=== PATIENT | male | born 1975 | race Caucasian/White ===

== ENCOUNTER 2020-05-15 05:40 | Emergency (ER) | payer OTHER ==
[~2020-05-15] VITALS: Ht 180.3 cm; Wt 90.7 kg
[2020-05-15 06:28] LABS: URINE BILIRUBIN NEGATIVE (Negative); URINE BLOOD 3+ (Negative); URINE CLARITY CLEAR; URINE COLOR YELLOW; URINE GLUCOSE-RANDOM NEGATIVE (Negative); URINE KETONES NEGATIVE (Negative); URINE LEUKOCYTES-REFLEX NEGATIVE (Negative); URINE NITRITE-REFLEX NEGATIVE (Negative); URINE PROTEIN NEGATIVE (Negative); URINE SPECIFIC GRAVITY >= 1.030 (1.005-1.030); URINE UROBILINOGEN 0.2 E.U./dl (0.2-1.0)
[2020-05-15] MEDS ORDERED: ZOFRAN ODT4 MG PO (06:52)
[2020-05-15] MEDS ORDERED: PERCOCET 7.5-31 EAC1 PO (06:52)
[2020-05-15] MEDS ORDERED: FLOMAX0.4 MG PO (06:52)
[2020-05-15 07:08] VITALS: BP 140/79
[2020-05-15 07:21] LABS: BACTERIA-REFLEX 1-9 Few /HPF (None Seen); CASTS None Seen /LPF (None Seen); MUCUS None Seen strn/LPF (None Seen); SQUAMOUS 0-3 Few /LPF (0-3); URIC ACID CRYSTALS 4-10 Moderate /LPF (None Seen); URINE RBC 3-10 Few /HPF (0-2); URINE WBC-REFLEX 0-5 Rare /HPF (0-5)
== END 2020-05-15 07:09 | disposition home or self-care (01) ==
LOC: M.ERS 05:40
PROVIDERS: Emergency Medicine
DX: N23 Unspecified renal colic (principal)